=== PATIENT | male | born 1965 | race Caucasian/White ===

== ENCOUNTER 2022-09-10 07:06 | Emergency (ER) | payer MEDICARE, MEDICAID, SELFPAY ==
--- NOTE | ~2022-09-10 | CT_ITS ---
EXAMINATION: CT abdomen pelvis w con INDICATION: Right lower quadrant pain TECHNIQUE: Computed tomographic images of the abdomen and pelvis were obtained after the administrati on of 100 cc of Omnipaque 350 intravenous contrast. The dose-length product (DLP) was 1530.42 mGy-cm. Automated exposure control and iterative reconstruction technique were employed. COMPARISON: None available FINDINGS: The lung bases are clear. The heart size is normal. The liver,, pancreas, and left adrenal gland are normal. There is a 1.3 cm nodule of the right adrenal gland. Punctate calcifications in an otherwise normal spleen likely represent healed granulomatous disease. Stones are present in the nond istended gallbladder. There is a 1.5 cm cyst of the left kidney. There is a 3 mm stone of the distal right ureter causing mild hydroureteronephrosis. No pathologically enlarged abdominal or pelvic lymph nodes are identified. No free intraperitoneal gas or evidence of bowel obstruction. There are small inguinal hernias containing fat. There is calcified atherosclerosis of the aorta and many of the othe r arteries. A moderate volume of colonic stool is present. The appendix is normal. There is moderate lumbar spondylosis. IMPRESSION: 1. 3 mm stone distal right ureter causing mild hydroureteronephrosis. 2. 1.3 cm right adrenal mass, probably likely an adenoma. If there is no history of prior malignancy, consider follow-up adrenal CT in 12 months. Reviewed, dictated and finalized at location B. IMPRESSION: 1. 3 mm stone distal right ureter causing mild hydroureteronephrosis. 2. 1.3 cm right adrenal mass, probably likely an adenoma. If there is no histor y of prior malignancy, consider follow-up adrenal CT in 12 months.
[2022-09-10 07:08] VITALS: BP 173/74; PULSE 56; RESP 16; TEMP 36.6; O2SAT 100
--- NOTE | 2022-09-10 07:45 | ED.GENADULT ---
HPI - General Adult General Chief complaint: Nausea/Vomiting/Diarrhea Stated complaint: flank pain Time Seen by Provider: 09/10/22 07:30 Source: RN notes reviewed History of Present Illness HPI narrative: Patient presents emergency department from home for abdominal pain. Patient states that symptoms began this morning approximately 5 AM. The pain is located in the right lower quadrant and radiates around into the right flank. The pain is described as sharp and stabbing does not radiate. It is associate with nausea and vomiting. Patient states that he did not take anything for the pain. He denies any fevers or chills chest pain shortness of breath or any other symptoms. Denies any previous history of kidney stones Related Data Allergies Allergy/AdvReac Type Severity Reaction Status Date / Time No Known Allergies Allergy Verified 09/10/22 08:00 Review of Systems Review of Systems: Gen.: Denies fevers or chills ENT: Denies congestion Respiratory: Denies shortness of breath or cough CV: Denies chest pain or palpitations GI: See HPI denies burning, urgency, frequency or hematuria Musculoskeletal: Denies back pain or muscle pain Neuro: Denies numbness, tingling, weakness or focal weakness Skin: Denies rash Except as documented, all other systems reviewed and negative FOR[facility] Past Medical History Medical History (Updated 09/10/22 @ 10:02 by Jorje Yanes DO) Diabetes mellitus Social History Social History (Updated 09/10/22 @ 07:47 by Jorje Yanes DO) Smoking status: Never smoker Exam Narrative: APPEARANCE: No acute distress, nontoxic, resting in bed HEENT: Normocephalic, atraumatic, OMM RESPIRATORY: No respiratory distress, clear to auscultation bilaterally with no rhonchi wheezing or rales CARDIOVASCULAR: RRR s murmur ABDOMINAL: Soft nondistended tender to palpation in the right lower quadrant no tenderness in the right upper quadrant, left upper quadrant left lower quadrant no rebound or guarding, right flank tenderness MUSCULOSKELETAl: Moves all extremities. No clubbing, cyanosis or edema. NEURO: Awake and alert. Following commands, speech normal, no focal deficits SKIN:: Warm, dry. Normal Color PSYCHIATRIC: Normal affect/mood Course Course Emergency Course: patient states he is feeling better at this time Discussed with patient CT scan discussed renal mass no history of cancer he will follow-up with his PCP Discussed with patient results of workup and diagnosis. Discussed need for follow-up with primary care, proper use of medication, and reasons to return to the emergency department. Patient understands and agrees to current treatment plan Vital Signs Vital signs: Vital Signs Temperature 97.8 F 09/10/22 07:08 Pulse Rate 56 L 09/10/22 07:08 Respiratory Rate 16 09/10/22 07:08 Blood Pressure 173/74 H 09/10/22 07:08 Pulse Oximetry 100 09/10/22 07:08 Oxygen Delivery Room Air 09/10/22 07:08 Temperature 97.8 F 09/10/22 07:08 Pulse Rate 56 L 09/10/22 07:08 Respiratory Rate 16 09/10/22 07:08 Blood Pressure 173/74 H 09/10/22 07:08 Pulse Oximetry 100 09/10/22 07:08 Oxygen Delivery Room Air 09/10/22 07:08 Medical Decision Making Differential Diagnosis Differential Diagnosis: Differential diagnosis includes appendicitis diverticulitis kidney stone cholecystitis or other intra-abdominal process Vital Signs Vital Signs: Vital Signs Temperature 97.8 F 09/10/22 07:08 Pulse Rate 56 L 09/10/22 07:08 Respiratory Rate 16 09/10/22 07:08 Blood Pressure 173/74 H 09/10/22 07:08 Pulse Oximetry 100 09/10/22 07:08 Oxygen Delivery Room Air 09/10/22 07:08 Temperature 97.8 F 09/10/22 07:08 Pulse Rate 56 L 09/10/22 07:08 Respiratory Rate 16 09/10/22 07:08 Blood Pressure 173/74 H 09/10/22 07:08 Pulse Oximetry 100 09/10/22 07:08 Oxygen Delivery Room Air 09/10/22 07:08 Lab Data Lab results reviewed: Yes I reviewed the pa
[2022-09-10] MEDS: ONDANSETRON INJ 4 MG/2 ML VIAL IV PUSH (08:01)
[2022-09-10] MEDS: SODIUM CHLORIDE 0.9% IV 1,000 ML 999 ML IV CONT (08:02)
[2022-09-10 08:03] LABS: Basophils Absolute Auto 0.1 K/mm3 (0.0-0.1); Basophils Percent Auto 0.6 % (0.2-1.2); Eosinophils Absolute Auto 0.2 K/mm3 (0-0.3); Eosinophils Percent Auto 1.7 % (0-4.4); Hematocrit 38.7 % (42.0-52.0); Hemoglobin 13.2 g/dL (14.0-18.0); Immature Granulocyte Absolute 0.03 K/mm3 (0.00-0.031); Immature Granulocyte Percent A 0.3 % (0-0.5); Lymphocytes Absolute Auto 1.28 K/mm3 (0.9-3.2); Lymphocytes Percent Auto 14.1 % (18.3-44.2); Mean Corpuscular HGB Conc 34.1 g/dl (32-36); Monocytes Absolute Auto 0.6 K/mm3 (0.1-0.6); Monocytes Percent Auto 6.6 % (2.6-8.5); Neutrophils Percent Auto 76.7 % (45.5-73.1); Platelet Count Result 208 k/mm3 (150-375); Red Cell Distribution Width 12.1 % (11.5-14.5); White Blood Count 9.1 K/mm3 (4.5-10.0)
[2022-09-10 08:07] LABS: Appearance Urine Cloudy (Clear); Bacteria Urine None Seen /hpf; Bilirubin Urine Negative (Negative); Blood Urine 3+ (Negative); Color Urine Yellow (Yellow); Glucose Urine UA Negative (Negative); Ketones Urine Trace mg/dL (Negative); Leukocyte Esterase Ur Negative LEU/UL (Negative); Nitrate Urine Negative (Negative); Non Pathogenic Casts 0-2; Protein Urine 1+ mg/dL (Negative); RBC Urine >100 /hpf (0-2); Specific Grav Ur 1.022 (1.001-1.035); Squamous Epithelial Cell Urine None seen /hpf (Few); WBC Urine 0-5 /hpf; pH Urine 5.5 (5.0-9.0)
[2022-09-10 08:16] LABS: Alanine Aminotransferase 33 U/L (6-50); Albumin Level 4.4 g/dL (3.5-5.1); Alkaline Phosphatase 78 U/L (38-126); Anion Gap 6 mmol/L (8-16); Aspartate Amino Transferase 22 U/L (17-59); Bilirubin,Total 0.8 mg/dL (0.2-1.3); Blood Urea Nitrogen 16 mg/dL (9-20); Calcium 8.9 mg/dL (8.4-10.2); Carbon Dioxide 24 mmol/L (22-30); Chloride 108 mmol/L (98-107); Estimated CRCL calculation 112 ml/min; Estimated Glomerular Filt Rate > 60; Glucose 171 mg/dL (65-110); Lipase 77 U/L (23-300); Potassium 4.5 mmol/L (3.4-5.0); Sodium 138 mmol/L (137-145)
[2022-09-10 08:28] LABS: Add Urine Microscopic? YES
[2022-09-10] MEDS: TAMSULOSIN HCL 0.4 MG CAPSULE PO (09:28)
[2022-09-10] MEDS: MORPHINE SULFATE (*CRX) 2 MG/ML INJ IV PUSH (09:28)
[2022-09-10 10:20] VITALS: BP 140/74; PULSE 77; RESP 15; O2SAT 99
== END 2022-09-10 10:21 | disposition home or self-care (01) ==
PROVIDERS: Emergency Provider Emergency Medicine
DX: N13.2 Hydronephrosis with renal and ureteral calculous obstruction (principal); E11.9 Type 2 diabetes mellitus without complications
CPT/HCPCS: 36415; 74177; 80053; 81001; 83690; 85025; 96365; 96375; 99284; A9270; J0131; J2270; J2405; J7030; Q9967